=== PATIENT | female | born 1950 | race Caucasian/White ===

== ENCOUNTER → 2016-08-31 | Outpatient (REF) | payer MEDICARE, OTHER ==
[~2016-08-31] MED LIST: /FEXO18TA OR; ASPI81TA83 OR; CALCCHW12 OR; COQ10 OR; DEXILANT DR OR; DILTIAZEM; DILTIAZEM ER OR; EPIP0.3I IM; FISHCAP OR; FLON0.05; LISI10TA4 OR; LORA0.5T OR; METF500T4 OR; MILKPOW OR; MULTIVIT OR; PROAAER INH; RECLAST INJ; RESTASIS OU; SIMV10TA2 OR; SING10TA31 OR; VITA500T OR; VITAMIN D2 PO; pataday OU
== END ==
LOC: M LAB REF 16:47
PROVIDERS: ATTEND Nurse Practitioner Adult Health
DX: R30.0 Dysuria (principal)

== ENCOUNTER → 2016-10-27 | Outpatient (CLI) | payer MEDICARE, OTHER ==
[~2016-10-27] MED LIST changes: +ALBU17IN; +ASPI81TA85 PO; +CART120C; +DEXI60CA; +FEXO180T58 PO; +GASTROGRAFIN SOLUTION 30ML (Q9963) As Ordered ONE; +HYOS125TA; +ISOVUE-370 76% 100ML VIAL (Q9967) As Ordered ONE; +LISI10TA4; +METF500T; +MONT10TA2; +PERC5TAB6 PO; +REST0.05; +SIMV10TA2
--- NOTE | 2016-10-27 14:46 | REP ---
REASON: History of diverticulitis. COMPARISON: 04/20/2016 The examination was performed after the administration of oral contrast only. Lack of intravenous contrast decreases the sensitivity of the exam. The lung bases are unchanged. There are no acute patchy opacities or pleural effusions. The hepatic parenchyma is unchanged. There is no fatty infiltration of the liver. Hepatic and splenic densities are within normal limits. Surgical clips are seen in the gallbladder fossa from previous cholecystectomy. Limited evaluation of the spleen, pancreas, adrenal glands, and kidneys shows no significant changes from the prior exam. 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 There is a simple Bosniak class I right renal cyst, which is also stable. Limited evaluation of the abdominal aorta and para-aortic regions shows no gross abnormalities or significant changes from the prior exam. There is no free fluid or free air in the abdomen. Limited evaluation of the bowel loops and their mesenteries shows them to be within normal limits. Note is made of descending colon diverticulosis. CT PELVIS: There is sigmoid colon diverticulosis. There is no free fluid or free air. There is no pelvic mass or adenopathy. The pelvic bowel loops are otherwise unremarkable and unchanged. Bone window technique throughout the exam shows the osseous structures to be stable and intact and within normal limits for the patient's age. IMPRESSION: No acute intra-abdominal or intrapelvic disease. Findings as described above. Signed by Bear Graves DO 10/27/2016 02:59 P
== END ==
LOC: M RAD 11:50
PROVIDERS: ATTEND Physician Assistant
DX: K57.92 Diverticulitis of intestine, part unspecified, without perforation or abscess without bleeding (principal)
CPT/HCPCS: 74176; Q9963

== ENCOUNTER 2016-10-31 07:27 | Emergency (ER) | payer MEDICARE, OTHER ==
[~2016-10-31] VITALS: Ht 160 cm; Wt 81.2 kg
[~2016-10-31 07:27] MED LIST changes: -ALBU17IN; -ASPI81TA85 PO; -CART120C; -DEXI60CA; -FEXO180T58 PO; -GASTROGRAFIN SOLUTION 30ML (Q9963) As Ordered ONE; -HYOS125TA; -ISOVUE-370 76% 100ML VIAL (Q9967) As Ordered ONE; -LISI10TA4; -METF500T; -MONT10TA2; -PERC5TAB6 PO; -REST0.05; -SIMV10TA2
[2016-10-31] MEDS ORDERED: CART120C (08:00)
[2016-10-31] MEDS ORDERED: MONT10TA2 (08:00)
[2016-10-31] MEDS ORDERED: HYOS125TA (08:00)
[2016-10-31] MEDS ORDERED: SIMV10TA2 (08:00)
[2016-10-31] MEDS ORDERED: REST0.05 (08:00)
[2016-10-31] MEDS ORDERED: LISI10TA4 (08:00)
[2016-10-31] MEDS ORDERED: FEXO180T58 PO (08:00)
[2016-10-31] MEDS ORDERED: ASPI81TA85 PO (08:00)
[2016-10-31] MEDS ORDERED: DEXI60CA (08:00)
[2016-10-31] MEDS ORDERED: ALBU17IN (08:00)
[2016-10-31] MEDS ORDERED: METF500T (08:00)
[2016-10-31] MEDS ORDERED: PERC5TAB6 PO (09:30)
[2016-10-31] MEDS ORDERED: PERCOCET 5MG/325MG TAB PO ONE (09:30)
[2016-10-31 09:41] VITALS: BP 146/83
--- NOTE | 2016-10-31 10:00 | REP ---
RIGHT FOOT: HISTORY: Pain after trauma. COMPARISON: 03/09/2007. The bones are demineralized. There are degenerative changes. There is a plantar calcaneal heel spur. There is no evidence of an acute fracture. IMPRESSION: Chronic changes. Signed by Bear Graves DO 10/31/2016 10:24 A
== END 2016-10-31 09:51 | disposition home or self-care (01) ==
LOC: M ED 09:31
DX: S93.601A Unspecified sprain of right foot, initial encounter (principal); W18.09XA Striking against other object with subsequent fall, initial encounter; Y92.019 Unspecified place in single-family (private) house as the place of occurrence of the external cause; Y93.01 Activity, walking, marching and hiking; Y99.8 Other external cause status; Z79.82 Long term (current) use of aspirin; Z79.899 Other long term (current) drug therapy; Z88.0 Allergy status to penicillin; Z88.1 Allergy status to other antibiotic agents; Z88.2 Allergy status to sulfonamides; Z88.6 Allergy status to analgesic agent; Z88.8 Allergy status to other drugs, medicaments and biological substances; Z91.030 Bee allergy status

== ENCOUNTER → 2016-12-16 | Outpatient (CLI) | payer MEDICARE, OTHER ==
[~2016-12-16] MED LIST changes: +ALBU17IN; +ASPI81TA85 PO; +CART120C; +DEXI60CA; +FEXO180T58 PO; +HYOS125TA; +LISI10TA4; +METF500T; +MONT10TA2; +PERC5TAB6 PO; +REST0.05; +SIMV10TA2
[2016-12-16 07:33] LABS: ALBUMIN 3.6 GM/DL (3.2-5.2); ALBUMIN/GLOBULIN RATIO 1.03 (1.00-1.93); ALKALINE PHOSPHATASE 68 U/L (45-117); ALT/SGPT 29 U/L (12-78); ANION GAP 7 MEQ/L (8-16); AST/SGOT 18 U/L (15-37); BILIRUBIN,TOTAL 0.6 MG/DL (0.2-1.0); BLOOD UREA NITROGEN 12 MG/DL (7-18); CALCIUM LEVEL 8.8 MG/DL (8.8-10.2); CARBON DIOXIDE LEVEL 28 MEQ/L (21-32); CHLORIDE LEVEL 107 MEQ/L (98-107); CHOLESTEROL LEVEL 185 MG/DL (<200); CREATININE FOR GFR 0.86 MG/DL (0.55-1.02); GLOMERULAR FILTRATION RATE > 60.0 (>45); GLUCOSE, FASTING 114 MG/DL (80-110); POTASSIUM SERUM 4.2 MEQ/L (3.5-5.1); SODIUM LEVEL 142 MEQ/L (136-145); TOTAL PROTEIN 7.1 GM/DL (6.4-8.2); TRIGLYCERIDES LEVEL 176 MG/DL (<150)
== END ==
LOC: M LAB 06:30
PROVIDERS: ATTEND Family Medicine
DX: E11.9 Type 2 diabetes mellitus without complications (principal)

== ENCOUNTER → 2017-03-17 | Outpatient (CLI) | payer MEDICARE, OTHER ==
[~2017-03-17] MED LIST changes: -DEXI60CA; +DEXI60CA2; -METF500T; +METF500T13; +PERC5TAB12 PO; -PERC5TAB6 PO
--- NOTE | 2017-03-17 19:16 | REP ---
HISTORY: Lower abdominal pain. COMPARISON: Multiple, the latest 10/27/2016, a contrast enhanced examination which showed extensive diverticulitis at the sigmoid colon. Today's examination was performed in followup. The lung bases are clear, essentially unchanged. Limited evaluation of the solid intra-abdominal organs show no significant changes from the prior exam. Limited evaluation of the pancreas and adrenal glands show no significant changes from the prior exam. There are chronic right renal changes, status quo. 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 There is no evidence of free fluid or free air within the abdomen. There is no significant change in the appearance of the abdominal aorta or periaortic regions. CT pelvis: Findings seen previously consistent with diverticulitis, appear less severe on this noncontrast enhanced exam, however, there is a small amount of free pelvic fluid, which has increased slightly from the prior exam. There is no evidence of intestinal obstruction. There is no evidence of pelvic adenopathy. Bone window technique throughout the examination shows no change in the osseous structures. IMPRESSION: There has been improvement in the appearance of the sigmoid colon diverticulitis, however, since no intravenous contrast has been administered, I cannot accurately assess for the possibility of a small developing abscess and I cannot state whether the patient has resolved diverticular changes from the 10/27/2016 exam and the finding today represents a resurgence of acute diverticulitis. This needs to be correlated with the patient's history. Other findings as described above. Signed by Bear Graves DO 03/17/2017 07:31 P
== END ==
LOC: M RAD 17:54
PROVIDERS: ATTEND Nurse Practitioner Family
DX: K57.80 Diverticulitis of intestine, part unspecified, with perforation and abscess without bleeding (principal)

== ENCOUNTER 2017-07-25 15:37 | Emergency (ER) | payer OTHER, MEDICARE | END 2017-07-25 15:54 | disposition home or self-care (01) | LOC: M ED 15:37 | DX: S83.92XA Sprain of unspecified site of left knee, initial encounter (principal); S80.02XA Contusion of left knee, initial encounter; W01.0XXA Fall on same level from slipping, tripping and stumbling without subsequent striking against object, initial encounter; Y92.89 Other specified places as the place of occurrence of the external cause; I10 Essential (primary) hypertension; E78.00 Pure hypercholesterolemia, unspecified; J45.909 Unspecified asthma, uncomplicated; K57.92 Diverticulitis of intestine, part unspecified, without perforation or abscess without bleeding; E11.9 Type 2 diabetes mellitus without complications; F17.210 Nicotine dependence, cigarettes, uncomplicated; Z88.8 Allergy status to other drugs, medicaments and biological substances; Z88.1 Allergy status to other antibiotic agents; Z88.0 Allergy status to penicillin; Z88.2 Allergy status to sulfonamides; Z79.899 Other long term (current) drug therapy; Z79.84 Long term (current) use of oral hypoglycemic drugs; Z79.82 Long term (current) use of aspirin | CPT/HCPCS: 73564 ==

== ENCOUNTER → 2017-07-28 | Outpatient (CLI) | payer OTHER, MEDICARE | LOC: M RAD 07:37 | DX: S80.02XA Contusion of left knee, initial encounter (principal); M17.32 Unilateral post-traumatic osteoarthritis, left knee; X58.XXXA Exposure to other specified factors, initial encounter; Y92.9 Unspecified place or not applicable; Y93.9 Activity, unspecified | CPT/HCPCS: 73700 ==

== ENCOUNTER → 2017-09-07 | Outpatient (REF) | payer MEDICARE, OTHER ==
[2017-09-07 17:46] LABS: BASO # 0.1 10^3/uL (0.0-0.2); BASO % 1.1 % (0.0-1.0); EOS # 0.3 10^3/uL (0.0-0.50); EOS % 2.8 % (0.0-3.0); HEMATOCRIT 41.6 % (36.0-47.0); HEMOGLOBIN 13.9 g/dl (12.0-16.0); IMMATURE GRANULOCYTE % 0.2 % (0-3.0); LYMPH # 2.8 10^3/uL (1.5-4.5); LYMPH % 30.8 % (24.0-44.0); MEAN CORPUSCULAR HEMOGLOBIN 32.5 pg (27.0-33.0); MEAN CORPUSCULAR HGB CONC 33.4 g/dl (32.0-36.5); MEAN CORPUSCULAR VOLUME 97.2 fl (80.0-96.0); MONO # 0.5 10^3/uL (0.0-0.8); MONO % 5.1 % (0.0-5.0); NEUTROPHILS # 5.5 10^3/uL (1.8-7.7); PLATELET COUNT, AUTOMATED 231 10^3/uL (150-450); RED BLOOD COUNT 4.28 10^6/uL (4.00-5.40); RED CELL DISTRIBUTION WIDTH 12.9 % (11.5-14.5); WHITE BLOOD COUNT 9.2 10^3/uL (4.0-10.0)
[2017-09-07 17:56] LABS: URIC ACID 5.3 MG/DL (2.6-6.0)
[2017-09-07 17:56] LABS: C REACTIVE PROTEIN QUANTITATIV < 0.30 MG/DL (0.00-0.30); RHEUMATOID FACTOR QUANT < 10.0 IU/ML (0-15.0)
[2017-09-07 18:51] LABS: ERYTHROCYTE SEDIMENTATION RATE 6 mm/hr (0-30)
[2017-09-10 00:07] LABS: ANTINUCLEAR ANTIBODIES DIRECT Negative (Negative); Lyme Disease IgG/IgM Antibodie <0.91 ISR (0.00-0.90); Lyme Disease IgM Ab Quantitati <0.80 index (0.00-0.79)
== END ==
LOC: M LABDRAW1 14:20
DX: M17.11 Unilateral primary osteoarthritis, right knee (principal); Z79.899 Other long term (current) drug therapy
CPT/HCPCS: 84550

== ENCOUNTER → 2018-06-17 | Outpatient (REF) | payer MEDICARE, OTHER | LOC: M LAB 14:35 | PROVIDERS: ATTEND Nurse Practitioner Family | DX: R19.7 Diarrhea, unspecified (principal) ==

== ENCOUNTER → 2018-08-07 | Outpatient (REF) | payer MEDICARE, OTHER | LOC: M LAB REF 12:39 | PROVIDERS: ATTEND Nurse Practitioner Family | DX: N39.0 Urinary tract infection, site not specified (principal) ==

== ENCOUNTER → 2018-12-16 | Outpatient (REF) | payer MEDICARE, OTHER ==
[2018-12-16 21:46] LABS: APPEARANCE, URINE HAZY (CLEAR); BACTERIA, URINE AUTO 2+ (NEGATIVE); BILIRUBIN, URINE AUTO NEGATIVE (NEGATIVE); BLOOD, URINE BLOOD NEGATIVE (NEGATIVE); COLOR, URINE YELLOW (YELLOW); GLUCOSE, URINE (UA) AUTO NEGATIVE (NEGATIVE); KETONE, URINE AUTO NEGATIVE (NEGATIVE); LEUKOCYTE ESTERASE, URINE AUTO 3+ (NEGATIVE); MUCUS, URINE SMALL (NEGATIVE); NITRITE, URINE AUTO NEGATIVE (NEGATIVE); PROTEIN, URINE AUTO NEGATIVE (NEGATIVE); RBC, URINE AUTO 1 /HPF (0-3); SPECIFIC GRAVITY URINE AUTO 1.008 (1.002-1.035); SQUAMOUS EPITHELIAL CELL UR AU 0 /HPF (0-6); UROBILINOGEN, URINE AUTO 0.2 mg/dL (0.0-2.0); WBC, URINE AUTO 72 /HPF (0-3)
== END ==
LOC: M LAB REF 14:32
PROVIDERS: ATTEND Physician Assistant Medical
DX: N39.0 Urinary tract infection, site not specified (principal)

== ENCOUNTER 2019-01-13 18:12 | Emergency (ER) | payer MEDICARE, OTHER ==
[~2019-01-13] VITALS: Ht 160 cm; Wt 77.3 kg
[2019-01-13 18:12] VITALS: BP 136/80
--- NOTE | 2019-01-14 10:39 | REP ---
RIGHT WRIST SERIES: Four views right wrist performed. There is an apparent nondisplaced intra-articular fracture of the distal end of the radius medially. I see no other evidence of acute fracture or dislocation. Electronically Signed by Med Dias MD 01/14/2019 11:33 P
--- NOTE | 2019-01-14 10:41 | REP ---
RIGHT FOREARM, TWO VIEWS: Two views of the right forearm are performed. No definite fracture is seen of the visualized osseous structures on these views, but on today's right wrist series, one view showed a suspected nondisplaced fracture of the distal radius medially extending into the radiocarpal joint. The studies are otherwise unremarkable. IMPRESSION: No evidence of acute fracture on these views, but today's right wrist series showed a suspected nondisplaced fracture of the distal radius. Electronically Signed by Med Dias MD 01/14/2019 11:35 P
== END 2019-01-13 19:54 | disposition left against medical advice (07) ==
LOC: M ED 18:12
DX: S69.91XA Unspecified injury of right wrist, hand and finger(s), initial encounter (principal); X58.XXXA Exposure to other specified factors, initial encounter; Y92.9 Unspecified place or not applicable; Y93.9 Activity, unspecified; Y99.9 Unspecified external cause status; Z53.21 Procedure and treatment not carried out due to patient leaving prior to being seen by health care provider

== ENCOUNTER → 2019-01-30 | Outpatient (CLI) | payer MEDICARE, OTHER ==
[~2019-01-30] MED LIST changes: -SIMV10TA2; +SIMV10TA21
--- NOTE | 2019-02-05 10:51 | SLEEPCENT ---
DATE OF STUDY: 01/30/2019 ORDERED BY: Dr. Gutierrez Nocturnal polysomnography was performed for evaluation of sleep physiology in this patient with a history of excessive somnolence, snoring and nonrestorative sleep who has comorbidity of chronic obstructive pulmonary disease (COPD). 9 hours and 7 minutes of data were reviewed. There were 339 minutes of sleep identified. Sleep latency was prolonged at 95.5 minutes. Rapid eye movement (REM) latency was prolonged a 323 minutes. Sleep architecture showed fragmentation. There was 1 REM cycle. Overall sleep efficiency was 62.6%. The electrocardiogram showed a sinus rhythm with an average heart rate of 63 beats per minute. Rate ranged 40-80. Electroencephalogram (EEG) showed significant alpha intrusion into non-REM stages. There were no focal events. Some artifact was noted. Otherwise normal waveforms for awake and sleep with only 1 respiratory event identified of 10 seconds in duration or greater for an apnea-hypopnea index of 2. Some snoring was appreciated. Respiratory related arousals occurred 0.4 times per hour. There was significant limb activity appreciated. Limb movement arousal index of 10.6. Oxygen saturations remained 90% plus throughout the study. IMPRESSION: Periodic limb movement disorder (G4 .61). Limb movement arousal index 10.6. RECOMMENDATION: Interventions to reduce the frequency of arousal from limb activity may improve the quality of the patient's sleep.
== END ==
LOC: M SLEEP 19:42
PROVIDERS: ATTEND Internal Medicine Pulmonary Disease
DX: R06.83 Snoring (principal); G47.61 Periodic limb movement disorder

== ENCOUNTER → 2019-04-04 | Outpatient (REF) | payer MEDICARE, OTHER ==
[~2019-04-04] MED LIST changes: +SIMV10TA2; -SIMV10TA21
== END ==
LOC: M LAB REF 15:36
DX: R19.7 Diarrhea, unspecified (principal)

== ENCOUNTER → 2019-09-02 | Outpatient (REF) | payer MEDICARE, OTHER ==
[~2019-09-02] MED LIST changes: -MONT10TA2; +MONT10TA4; -SIMV10TA2; +SIMV10TA21
== END ==
LOC: M LAB REF 17:52
PROVIDERS: ATTEND Physician Assistant
DX: R30.0 Dysuria (principal)

== ENCOUNTER → 2019-09-30 | Outpatient (REF) | payer MEDICARE, OTHER ==
[2019-09-30 13:16] LABS: APPEARANCE, URINE HAZY (CLEAR); BACTERIA, URINE AUTO 1+ (NEGATIVE); BILIRUBIN, URINE AUTO NEGATIVE (NEGATIVE); BLOOD, URINE BLOOD NEGATIVE (NEGATIVE); COLOR, URINE YELLOW (YELLOW); GLUCOSE, URINE (UA) AUTO NEGATIVE (NEGATIVE); KETONE, URINE AUTO NEGATIVE (NEGATIVE); LEUKOCYTE ESTERASE, URINE AUTO 2+ (NEGATIVE); MUCUS, URINE SMALL (NEGATIVE); NITRITE, URINE AUTO NEGATIVE (NEGATIVE); PROTEIN, URINE AUTO NEGATIVE (NEGATIVE); RBC, URINE AUTO 3 /HPF (0-3); SPECIFIC GRAVITY URINE AUTO 1.013 (1.002-1.035); SQUAMOUS EPITHELIAL CELL UR AU 0 /HPF (0-6); UROBILINOGEN, URINE AUTO 0.2 mg/dL (0.0-2.0); WBC, URINE AUTO 143 /HPF (0-3)
== END ==
LOC: M LAB REF 12:44
PROVIDERS: ATTEND Physician Assistant Medical
DX: N39.0 Urinary tract infection, site not specified (principal)

== ENCOUNTER → 2019-10-19 | Outpatient (REF) | payer MEDICARE, OTHER | LOC: M LAB REF 16:08 | PROVIDERS: ATTEND Nurse Practitioner Family | DX: I88.9 Nonspecific lymphadenitis, unspecified (principal) ==

== ENCOUNTER 2019-11-30 11:23 | Emergency (ER) | payer MEDICARE, OTHER ==
[~2019-11-30] VITALS: Ht 160 cm; Wt 77.3 kg
[~2019-11-30 11:23] MED LIST changes: -CART120C; +CART120C PO; -DEXI60CA2; +DEXI60CA2 PO; -LISI10TA4; +LISI10TA4 PO; -METF500T13; +METF500T13 PO; -MONT10TA4; +MONT10TA4 PO; -REST0.05; +REST0.05 OU; -SIMV10TA21; +SIMV10TA21 PO
[2019-11-30] MEDS ORDERED: PURE500C5 PO (11:53)
[2019-11-30] MEDS ORDERED: FISH1000 PO (11:53)
[2019-11-30] MEDS ORDERED: DULO1CAP6 PO (11:53)
[2019-11-30] MEDS ORDERED: VITA1CAP25 PO (11:53)
[2019-11-30] MEDS ORDERED: INCR1INH INH (11:53)
[2019-11-30] MEDS ORDERED: MILK175C6 PO (11:53)
[2019-11-30] MEDS ORDERED: MULTCAP PO (11:53)
[2019-11-30 11:56] LABS: BASO # 0.1 10^3/uL (0.0-0.2); BASO % 0.8 % (0.0-1.0); EOS # 0.5 10^3/uL (0.0-0.5); EOS % 7.2 % (0.0-3.0); HEMOGLOBIN 14.2 g/dl (12.0-15.5); LYMPH # 2.3 10^3/uL (1.5-5.0); LYMPH % 31.1 % (24.0-44.0); MEAN CORPUSCULAR HEMOGLOBIN 33.3 pg (27.0-33.0); MEAN CORPUSCULAR HGB CONC 33.8 g/dl (32.0-36.5); MEAN CORPUSCULAR VOLUME 98.4 fl (80.0-96.0); MONO # 0.5 10^3/uL (0.0-0.8); MONO % 7.2 % (0.0-5.0); NEUTROPHILS # 3.9 10^3/uL (1.5-8.5); NEUTROPHILS % 53.4 % (36.0-66.0); PLATELET COUNT, AUTOMATED 224 10^3/uL (150-450); RED BLOOD COUNT 4.27 10^6/uL (4.00-5.40); WHITE BLOOD COUNT 7.2 10^3/uL (4.0-10.0)
[2019-11-30 12:26] LABS: ALBUMIN 3.7 GM/DL (3.2-5.2); ALT/SGPT 39 U/L (12-78); BILIRUBIN,DIRECT 0.2 MG/DL (0.0-0.2); BILIRUBIN,TOTAL 0.5 MG/DL (0.2-1.0); BLOOD UREA NITROGEN 10 MG/DL (7-18); CALCIUM LEVEL 8.5 MG/DL (8.8-10.2); CARBON DIOXIDE LEVEL 29 MEQ/L (21-32); CHLORIDE LEVEL 104 MEQ/L (98-107); CREATININE FOR GFR 0.72 MG/DL (0.55-1.30); GLOMERULAR FILTRATION RATE > 60.0 (>39); GLUCOSE, FASTING 94 MG/DL (70-100); LIPASE 55 U/L (73-393); POTASSIUM SERUM 4.3 MEQ/L (3.5-5.1); SODIUM LEVEL 139 MEQ/L (136-145); TOTAL PROTEIN 6.9 GM/DL (6.4-8.2)
--- NOTE | 2019-11-30 14:36 | REP ---
CHEST, SINGLE VIEW: Single view of the chest is performed. Comparison made with prior CT, 07/14/2018 as well as other prior exams. There is a focal band of density at the left cardiophrenic angle, probably representing focal fibroatelectasis, as seen on the prior CT. There is no acute infiltrate. Heart is normal in size. There is calcification of the thoracic aorta. Mediastinal silhouette is unremarkable. Electronically Signed by Med Dias MD 12/03/2019 09:56 P
[2019-11-30 14:41] VITALS: BP 121/59
--- NOTE | 2019-11-30 21:07 | ECGEPIP ---
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
--- NOTE | 2019-11-30 21:12 | ECGEPIP ---
[facility] - ED Test Date: 2019-11-30 Pat Name: LYNN FELIPE Department: Room: - Gender: Female [employer]: jfburak : 1950 Requested By: Baldemar Garcia Order Number: [id number] Reading MD: Rose De La Vega Measurements Intervals [place] Rate: 66 P: 60 [place]: 177 QRS: 4 QRSD: 84 T: 41 QT: 396 QTc: 415 Interpretive Statements SINUS RHYTHM DECREASED RATE 11/30/19 Electronically Signed on 11-30-2019 21:12:33 EDT by Rose De La Vega
== END 2019-11-30 14:55 | disposition home or self-care (01) ==
LOC: M ED 11:23
DX: R07.9 Chest pain, unspecified (principal); K21.9 Gastro-esophageal reflux disease without esophagitis; I10 Essential (primary) hypertension; E78.5 Hyperlipidemia, unspecified; F17.200 Nicotine dependence, unspecified, uncomplicated; I70.0 Atherosclerosis of aorta; J44.9 Chronic obstructive pulmonary disease, unspecified; K44.9 Diaphragmatic hernia without obstruction or gangrene; Z79.82 Long term (current) use of aspirin; Z79.84 Long term (current) use of oral hypoglycemic drugs; Z79.899 Other long term (current) drug therapy; Z88.0 Allergy status to penicillin; Z88.2 Allergy status to sulfonamides; Z88.8 Allergy status to other drugs, medicaments and biological substances; Z91.030 Bee allergy status

== ENCOUNTER → 2020-02-23 | Outpatient (REF) | payer MEDICARE, OTHER ==
[~2020-02-23] MED LIST changes: -ASPI81TA85 PO; +ASPI81TA86 PO; +DULO1CAP6 PO; +FISH1000 PO; +INCR1INH INH; +MILK175C6 PO; +MULTCAP PO; +PURE500C5 PO; +VITA1CAP25 PO
[2020-02-23 20:11] LABS: APPEARANCE, URINE HAZY (CLEAR); BACTERIA, URINE AUTO 1+ (NEGATIVE); BILIRUBIN, URINE AUTO NEGATIVE (NEGATIVE); BLOOD, URINE BLOOD NEGATIVE (NEGATIVE); COLOR, URINE AMBER (YELLOW); GLUCOSE, URINE (UA) AUTO NEGATIVE (NEGATIVE); KETONE, URINE AUTO NEGATIVE (NEGATIVE); LEUKOCYTE ESTERASE, URINE AUTO 2+ (NEGATIVE); NITRITE, URINE AUTO POSITIVE (NEGATIVE); PROTEIN, URINE AUTO NEGATIVE (NEGATIVE); RBC, URINE AUTO 0 /HPF (0-3); SPECIFIC GRAVITY URINE AUTO 1.008 (1.002-1.035); SQUAMOUS EPITHELIAL CELL UR AU 0 /HPF (0-6); WBC, URINE AUTO 29 /HPF (0-3)
== END ==
LOC: M LAB REF 19:37
PROVIDERS: ATTEND Physician Assistant Medical
DX: R30.0 Dysuria (principal)

== ENCOUNTER → 2020-04-24 | Outpatient (REF) | payer MEDICARE, OTHER ==
[2020-04-24 12:17] LABS: APPEARANCE, URINE CLEAR (CLEAR); BACTERIA, URINE AUTO 1+ (NEGATIVE); BILIRUBIN, URINE AUTO NEGATIVE (NEGATIVE); BLOOD, URINE BLOOD NEGATIVE (NEGATIVE); COLOR, URINE STRAW (YELLOW); GLUCOSE, URINE (UA) AUTO NEGATIVE (NEGATIVE); KETONE, URINE AUTO NEGATIVE (NEGATIVE); LEUKOCYTE ESTERASE, URINE AUTO 3+ (NEGATIVE); MUCUS, URINE SMALL (NEGATIVE); NITRITE, URINE AUTO NEGATIVE (NEGATIVE); PROTEIN, URINE AUTO NEGATIVE (NEGATIVE); RBC, URINE AUTO 1 /HPF (0-3); SPECIFIC GRAVITY URINE AUTO 1.002 (1.002-1.035); SQUAMOUS EPITHELIAL CELL UR AU 0 /HPF (0-6); UROBILINOGEN, URINE AUTO 0.2 mg/dL (0.0-2.0); WBC, URINE AUTO 104 /HPF (0-3)
== END ==
LOC: M LAB REF 11:25
PROVIDERS: ATTEND Physician Assistant
DX: N39.0 Urinary tract infection, site not specified (principal)

== ENCOUNTER 2020-05-26 18:23 | Emergency (ER) | payer MEDICARE, OTHER ==
[~2020-05-26] VITALS: Ht 160 cm; Wt 74.8 kg
[~2020-05-26 18:23] MED LIST changes: -MONT10TA4 PO; +MONT5TAB2 PO
[2020-05-26 18:24] VITALS: BP 148/66
[2020-05-26] MEDS ORDERED: NS 1,000 ML IV ONE (20:15)
[2020-05-26 20:33] LABS: BASO # 0.1 10^3/uL (0.0-0.2); EOS # 0.4 10^3/uL (0.0-0.5); EOS % 5.8 % (0.0-3.0); HEMATOCRIT 41.9 % (36.0-47.0); HEMOGLOBIN 13.9 g/dl (12.0-15.5); LYMPH # 2.3 10^3/uL (1.5-5.0); LYMPH % 31.5 % (24.0-44.0); MEAN CORPUSCULAR HEMOGLOBIN 32.6 pg (27.0-33.0); MEAN CORPUSCULAR HGB CONC 33.2 g/dl (32.0-36.5); MEAN CORPUSCULAR VOLUME 98.4 fl (80.0-96.0); MONO # 0.6 10^3/uL (0.0-0.8); MONO % 8.1 % (0.0-5.0); NEUTROPHILS # 3.9 10^3/uL (1.5-8.5); NEUTROPHILS % 53.2 % (36.0-66.0); PLATELET COUNT, AUTOMATED 237 10^3/uL (150-450); RED BLOOD COUNT 4.26 10^6/uL (4.00-5.40); WHITE BLOOD COUNT 7.3 10^3/uL (4.0-10.0)
[2020-05-26 21:13] LABS: ALBUMIN 3.6 GM/DL (3.2-5.2); ALT/SGPT 32 U/L (12-78); BILIRUBIN,DIRECT 0.1 MG/DL (0.0-0.2); BILIRUBIN,TOTAL 0.5 MG/DL (0.2-1.0); BLOOD UREA NITROGEN 11 MG/DL (7-18); CALCIUM LEVEL 8.6 MG/DL (8.8-10.2); CARBON DIOXIDE LEVEL 26 MEQ/L (21-32); CHLORIDE LEVEL 105 MEQ/L (98-107); CREATININE FOR GFR 0.87 MG/DL (0.55-1.30); GLOMERULAR FILTRATION RATE > 60.0 (>39); GLUCOSE, FASTING 92 MG/DL (70-100); LIPASE 52 U/L (73-393); POTASSIUM SERUM 4.1 MEQ/L (3.5-5.1); SODIUM LEVEL 138 MEQ/L (136-145); TOTAL PROTEIN 6.7 GM/DL (6.4-8.2)
[2020-05-26] MEDS ORDERED: ISOVUE-370 76% 100ML VIAL As Ordered ONE (21:21)
--- NOTE | 2020-05-26 22:49 | REPVR ---
PROCEDURE INFORMATION: Exam: CT Abdomen And Pelvis With Contrast Exam date and time: 05/26/2020 9:59 PM Age: 70 years old Clinical indication: Abdominal pain; Localized; Right lower quadrant (rlq) pain TECHNIQUE: Imaging protocol: Computed tomography of the abdomen and pelvis with intravenous contrast. Radiation optimization: All CT scans at this facility use at least one of these dose optimization techniques: automated exposure control; mA and/or kV adjustment per patient size (includes targeted exams where dose is matched to clinical indication); or iterative reconstruction. Contrast material: ISOVUE 370; Contrast volume: 100 ml; Contrast route: INTRAVENOUS (IV); COMPARISON: 1. CT ABD PELVIS W/O CONTRAST 03/17/2017 6:[address] ABD PELVIS WITH CONTRAST 04/20/2016 8:39:27 AM FINDINGS: Lungs: There is scarring in the inferior lingula that is unchanged compared to the prior CT abdomen and pelvis on 03/17/2017. The lungs were not fully imaged. Heart: No cardiomegaly or pericardial effusion. Liver: The attenuation of the liver is more than 40 Hounsfield units lower in attenuation compared to the spleen, which is compatible with fatty liver infiltration. No liver lesion. The contour of the liver is smooth. The liver is enlarged and in craniocaudal dimension and at the level of the right midclavicular line, the liver measures 17.3 cm. Gallbladder and bile ducts: There has been a cholecystectomy. There is no fluid collection in the gallbladder fossa. No dilation of the bile ducts is noted. No calcified stones are seen in the common bile duct. Pancreas: Normal. No dilation of the main pancreatic duct is noted. There is no inflammatory fat stranding around the pancreas to suggest acute pancreatitis. Spleen: Normal. No splenomegaly is noted. Incidental note is made of a small accessory spleen. Adrenal glands: Normal. No adrenal mass is noted. Kidneys and ureters: There is right periureteral stranding around the right proximal ureter. Mild right hydronephrosis is present. There is incomplete rotation of the right kidney such that the hilum faces anteriorly. There is a 9 mm simple benign appearing cyst in the interpolar region of the right kidney, which is stable compared to the prior CTs on 03/17/2017 and 04/20/2016 and for which further imaging follow-up is not recommended. The left kidney is unremarkable. No renal mass is noted. No stones are noted in the kidneys or ureters. There are no wedge-shaped areas of low attenuation in the kidneys to suggest pyelonephritis. There is no renal abscess or perinephric fluid collection. Stomach and bowel: There is thickening of the wall of the stomach, which may be secondary to its decompressed state versus gastritis. The small bowel is unremarkable. There is colonic diverticulosis without evidence for diverticulitis. There is no evidence for a bowel obstruction, colitis, pneumatosis intestinalis, intussusception, volvulus, or perforated viscus. Appendix: The appendix is not identified in the current examination or in the prior CT abdomen and pelvis examinations on 03/17/2017 and 04/20/2016 and may have been removed. No dilated blind ending tubular structure, inflammatory fat stranding, or fluid is noted in the expected location of the appendix. Intraperitoneal space: Unremarkable. No fluid collection. No free air. Retroperitoneal space: No retroperitoneal fluid collection. Vasculature: The infrarenal abdominal aorta is ectatic and measures up to 2.5 cm in diameter. Extensive atherosclerotic plaque is present. No occlusion of the celiac artery, superior mesenteric artery, inferior mesenteric artery, renal arteries, or iliac arteries is noted. Lymph nodes: Normal. No enlarged lymph nodes. Urinary bladder: The distended urinary bladder is normal in appearance. No stones or masses are seen in the bladder. Reproductive: There has been a hysterectomy. Bones/joints: There is no fracture or dislocation. No suspicious osteolytic or osteoblastic lesion. There is a mild levoscoliosis at the thoracolumbar junction air a mild dextroscoliosis of the lower lumbar spine. Degenerative changes are present in the lumbar spine. There is mild osteoarthritis of both hip joints. There are degenerative changes the pubic symphysis and both sacroiliac joints. Soft tissues: There is a tiny fat containing umbilical hernia. IMPRESSION: 1. Mild right hydronephrosis and periureteral stranding around the right proximal ureter, which may indicate recent excretion of a right ureteral calculus from the genitourinary system, an ascending urinary tract infection, or right vesicoureteral reflux. 2. Thickening of the wall of the stomach, which may be secondary to its decompressed state versus gastritis. 3. Colonic diverticulosis without evidence for diverticulitis. 4. Enlarged, fatty liver. Electronically signed by: Juan Miguel Henao On 05/26/2020 22:49:58 PM
[2020-05-26] MEDS ORDERED: AUGM875T28 PO (23:43)
[2020-05-26] MEDS ORDERED: AUGMENTIN 875 MG TAB PO ONE (23:45)
== END 2020-05-27 00:06 | disposition home or self-care (01) ==
LOC: M ED 18:23
DX: N10 Acute pyelonephritis (principal); R51.9 Headache, unspecified; N13.30 Unspecified hydronephrosis; K57.30 Diverticulosis of large intestine without perforation or abscess without bleeding; K76.0 Fatty (change of) liver, not elsewhere classified; E11.9 Type 2 diabetes mellitus without complications; I10 Essential (primary) hypertension; E78.5 Hyperlipidemia, unspecified; J45.909 Unspecified asthma, uncomplicated; F17.200 Nicotine dependence, unspecified, uncomplicated; Z88.2 Allergy status to sulfonamides; Z88.6 Allergy status to analgesic agent; Z88.8 Allergy status to other drugs, medicaments and biological substances; Z91.030 Bee allergy status; Z79.899 Other long term (current) drug therapy
CPT/HCPCS: 36415; 74177; 80048; 80076; 81001; 83605; 83690; 85025; 87086; 96360; 96361; 99283; Q9967

== ENCOUNTER 2020-08-05 09:56 | Emergency (ER) | payer OTHER, MEDICARE ==
[~2020-08-05] VITALS: Ht 161.3 cm; Wt 78.3 kg
[~2020-08-05 09:56] MED LIST changes: +AUGM875T28 PO; +LISI10TA22 PO; -LISI10TA4 PO; +MONT10TA10 PO; -MONT5TAB2 PO
[2020-08-05] MEDS ORDERED: ALBU8.5H (10:07)
--- NOTE | 2020-08-05 10:40 | REP ---
INDICATION: pain after fall. COMPARISON: Comparison study 25 July 2017. TECHNIQUE: Five views of the left knee are provided. FINDINGS: Five views of the left knee demonstrate diffuse osteopenia. There is advanced 3 compartment osteoarthritis with medial and patellofemoral compartments. Spurring and joint space narrowing. There is some osteophyte formation laterally as well. There is soft tissue fullness in the suprapatellar bursa indicative of a joint effusion. On the lateral radiograph there is fragmented spurring at the posterior tibial plateau. The findings are essentially unchanged radiographically from prior study of 25 July 2017.. No fracture or subluxation is seen. No opaque foreign body noted. IMPRESSION: Three compartment osteoarthritis. Diffuse osteopenia. Probable joint effusion. No fracture or other acute bony abnormality.. <Electronically signed by Hernandez Vargas > 08/05/20 [id number]
[2020-08-05 11:00] VITALS: BP 142/74
[2020-08-05] MEDS ORDERED: ACETAMINOPHEN 325 MG TAB PO ONE (11:00)
== END 2020-08-05 11:04 | disposition home or self-care (01) ==
LOC: M ED 09:56
DX: M25.462 Effusion, left knee (principal); S80.02XA Contusion of left knee, initial encounter; W01.0XXA Fall on same level from slipping, tripping and stumbling without subsequent striking against object, initial encounter; Y92.89 Other specified places as the place of occurrence of the external cause; Y99.0 Civilian activity done for income or pay; I10 Essential (primary) hypertension; E11.9 Type 2 diabetes mellitus without complications; J44.9 Chronic obstructive pulmonary disease, unspecified; J45.909 Unspecified asthma, uncomplicated; E78.5 Hyperlipidemia, unspecified; M19.90 Unspecified osteoarthritis, unspecified site; Z79.899 Other long term (current) drug therapy; Z79.82 Long term (current) use of aspirin; Z79.84 Long term (current) use of oral hypoglycemic drugs; F17.210 Nicotine dependence, cigarettes, uncomplicated

== ENCOUNTER 2020-10-05 08:59 | Emergency (ER) | payer MEDICARE, OTHER ==
[~2020-10-05] VITALS: Ht 160 cm; Wt 75.6 kg
[~2020-10-05 08:59] MED LIST changes: +ALBU8.5H
[2020-10-05 09:29] LABS: BASO # 0.1 10^3/uL (0.0-0.2); BASO % 1.1 % (0.0-1.0); EOS # 0.3 10^3/uL (0.0-0.5); EOS % 2.9 % (0.0-3.0); HEMATOCRIT 46.5 % (36.0-47.0); HEMOGLOBIN 15.6 g/dl (12.0-15.5); LYMPH # 2.3 10^3/uL (1.5-5.0); LYMPH % 25.4 % (24.0-44.0); MEAN CORPUSCULAR HEMOGLOBIN 33.1 pg (27.0-33.0); MEAN CORPUSCULAR HGB CONC 33.5 g/dl (32.0-36.5); MEAN CORPUSCULAR VOLUME 98.5 fl (80.0-96.0); MONO # 0.5 10^3/uL (0.0-0.8); MONO % 5.5 % (2.0-8.0); NEUTROPHILS # 5.9 10^3/uL (1.5-8.5); NEUTROPHILS % 64.7 % (36.0-66.0); PLATELET COUNT, AUTOMATED 232 10^3/uL (150-450); RED BLOOD COUNT 4.72 10^6/uL (4.00-5.40); WHITE BLOOD COUNT 9.2 10^3/uL (4.0-10.0)
[2020-10-05 09:38] LABS: INR 0.94; PROTHROMBIN TIME 12.7 SECONDS (12.5-14.3)
[2020-10-05 09:39] LABS: PARTIAL THROMBOPLASTIN TIME 29.5 SECONDS (24.2-38.5)
[2020-10-05] MEDS ORDERED: NORCO, ANEXSIA 5/325MG TABLET (HYDROcodone/ACETAMINOPHEN) PO ONE (09:45)
[2020-10-05 10:22] LABS: ALBUMIN 3.6 GM/DL (3.2-5.2); BILIRUBIN,DIRECT 0.1 MG/DL (0.0-0.2); BILIRUBIN,TOTAL 0.5 MG/DL (0.2-1.0); TOTAL PROTEIN 7.1 GM/DL (6.4-8.2)
--- NOTE | 2020-10-05 10:49 | REP ---
INDICATION: FP right COMPARISON: 05/26/2020. TECHNIQUE: CT Scan of the abdomen and pelvis was performed without intravenous contrast. Sagittal and coronal reconstruction images performed. FINDINGS: Lung bases: There is calcified granuloma in the right lower lobe. Mild fibro atelectatic change in the lingula. Liver: Grossly unremarkable. Gallbladder: Prior cholecystectomy. Spleen: Grossly unremarkable.. Adrenals: Normal. Pancreas: Grossly unremarkable.. Kidneys: No hydronephrosis or nephrolithiasis. Ureters demonstrate no dilatation or calculus. The right kidney is again noted to be somewhat malrotated. Small and large bowel: There is colonic diverticulosis without evidence of acute diverticulitis. Free fluid: None. Abdominal aorta: No aneurysm. Adenopathy: None. Appendix: No inflamed appendix seen. Osseous structures: There are degenerative changes of the spine without compression deformity. Pelvis: No mass. No bladder calculus seen. Prior hysterectomy. IMPRESSION: No acute abnormalities. No renal or ureteral calculus and no hydroureteronephrosis. Colonic diverticulosis without acute diverticulitis. No free air, free fluid or evidence of bowel obstruction. <Electronically signed by Med Dias > 10/05/20 [id number]
[2020-10-05 11:01] VITALS: BP 187/79
== END 2020-10-05 11:05 | disposition home or self-care (01) ==
LOC: M ED 08:59
DX: R10.9 Unspecified abdominal pain (principal); K57.32 Diverticulitis of large intestine without perforation or abscess without bleeding; Z85.51 Personal history of malignant neoplasm of bladder; F17.200 Nicotine dependence, unspecified, uncomplicated; Z88.2 Allergy status to sulfonamides; Z88.6 Allergy status to analgesic agent; Z88.1 Allergy status to other antibiotic agents; Z88.8 Allergy status to other drugs, medicaments and biological substances; Z79.899 Other long term (current) drug therapy

== ENCOUNTER → 2021-01-05 | Outpatient (CLI) | payer MEDICARE, OTHER ==
[~2021-01-05] MED LIST changes: -MONT10TA10 PO; +MONT10TA97 PO
== END ==
LOC: M RAD 08:50
PROVIDERS: ATTEND Internal Medicine Pulmonary Disease
DX: F17.210 Nicotine dependence, cigarettes, uncomplicated (principal)

== ENCOUNTER 2021-01-28 18:28 | Emergency (ER) | payer MEDICARE, OTHER ==
[~2021-01-28] VITALS: Ht 157.5 cm; Wt 31.4 kg
[~2021-01-28 18:28] MED LIST changes: +MONT10TA10 PO; -MONT10TA97 PO
[2021-01-28 18:29] VITALS: BP 138/67
== END 2021-01-28 22:45 | disposition left against medical advice (07) ==
LOC: M ED 18:28
DX: Z53.21 Procedure and treatment not carried out due to patient leaving prior to being seen by health care provider (principal)

== ENCOUNTER → 2021-04-24 | Outpatient (REF) | payer MEDICARE, OTHER | LOC: M LAB REF 16:51 | PROVIDERS: ATTEND Nurse Practitioner Adult Health | DX: R30.0 Dysuria (principal) ==

== ENCOUNTER → 2022-02-09 | Outpatient (CLI) | payer MEDICARE ==
[~2022-02-09] MED LIST changes: +FEXO-117 PO; -FEXO180T58 PO; -MONT10TA10 PO; +MONT10TA97 PO
== END ==
LOC: M RAD 08:40
PROVIDERS: ATTEND Internal Medicine Pulmonary Disease
DX: F17.218 Nicotine dependence, cigarettes, with other nicotine-induced disorders (principal)

== ENCOUNTER → 2022-03-15 | Outpatient (CLI) | payer MEDICARE ==
[~2022-03-15] MED LIST changes: -ALBU8.5H; +ALBU8.5H INH; +ASPI81TA26 PO
== END ==
LOC: M LABSMTC 10:51
PROVIDERS: ATTEND Anesthesiology
DX: Z01.812 Encounter for preprocedural laboratory examination (principal); Z20.822 Contact with and (suspected) exposure to COVID-19

== ENCOUNTER 2022-03-18 12:18 | Day surgery (SDC) | payer MEDICARE ==
[~2022-03-18] VITALS: Ht 162.6 cm; Wt 74.6 kg
[~2022-03-18 12:18] MED LIST changes: +NS 1,000 ML IV ONE
[2022-03-18] MEDS ORDERED: LIDOCAINE 2% 100MG/5ML SDV (FOR ANES.) As Ordered ONE (14:02)
[2022-03-18] MEDS ORDERED: propofoL 200 MG/20 ML VIAL As Ordered ONE ×2 (14:02→14:20)
[2022-03-18 14:45] VITALS: BP 119/71
== END 2022-03-18 14:56 | disposition home or self-care (01) ==
LOC: M OPP 12:18
PROVIDERS: ATTEND Surgery
DX: Z12.11 Encounter for screening for malignant neoplasm of colon (principal); Z86.010 Personal history of colon polyps; D12.8 Benign neoplasm of rectum; D12.7 Benign neoplasm of rectosigmoid junction; D12.5 Benign neoplasm of sigmoid colon; D12.3 Benign neoplasm of transverse colon; D12.2 Benign neoplasm of ascending colon; K57.30 Diverticulosis of large intestine without perforation or abscess without bleeding; K44.9 Diaphragmatic hernia without obstruction or gangrene; K29.70 Gastritis, unspecified, without bleeding; K29.80 Duodenitis without bleeding; F17.200 Nicotine dependence, unspecified, uncomplicated; Z79.02 Long term (current) use of antithrombotics/antiplatelets; Z79.51 Long term (current) use of inhaled steroids; Z79.84 Long term (current) use of oral hypoglycemic drugs; Z79.82 Long term (current) use of aspirin; Z79.899 Other long term (current) drug therapy; Z88.1 Allergy status to other antibiotic agents; Z88.2 Allergy status to sulfonamides; Z88.6 Allergy status to analgesic agent; Z88.8 Allergy status to other drugs, medicaments and biological substances; Z86.51 Personal history of combat and operational stress reaction; Z92.21 Personal history of antineoplastic chemotherapy; I10 Essential (primary) hypertension; J44.9 Chronic obstructive pulmonary disease, unspecified

== ENCOUNTER → 2023-03-07 | Outpatient (CLI) | payer MEDICARE ==
[~2023-03-07] MED LIST changes: +ASCO500C3 PO; -NS 1,000 ML IV ONE; -PURE500C5 PO
== END ==
LOC: M RAD 16:23
PROVIDERS: ATTEND Internal Medicine Pulmonary Disease
DX: Z12.2 Encounter for screening for malignant neoplasm of respiratory organs (principal); F17.218 Nicotine dependence, cigarettes, with other nicotine-induced disorders; R91.8 Other nonspecific abnormal finding of lung field

== ENCOUNTER 2023-10-01 17:33 | Emergency (ER) | payer MEDICARE ==
[~2023-10-01] VITALS: Ht 162.6 cm; Wt 72.2 kg
[2023-10-01] MEDS: LIDOCAINE 5% (LIDODERM) PATCH TD ONE (19:40)
[2023-10-01] MEDS: KETOROLAC 60MG 2ML VIAL IM ONE (19:40)
[2023-10-01] MEDS ORDERED: LIDO5DIS41 TD (20:23)
[2023-10-01] MEDS ORDERED: CYCL-707 PO (20:23)
[2023-10-01] MEDS ORDERED: NAPR-837 PO (20:23)
[2023-10-01 20:39] VITALS: BP 143/83; TEMP 97.6; O2SAT 96
== END 2023-10-01 20:41 | disposition home or self-care (01) ==
LOC: M ED 17:33
DX: M54.50 Low back pain, unspecified (principal); E11.9 Type 2 diabetes mellitus without complications; I10 Essential (primary) hypertension; E78.5 Hyperlipidemia, unspecified; F41.9 Anxiety disorder, unspecified; F32.A Depression, unspecified; J44.9 Chronic obstructive pulmonary disease, unspecified; R51.9 Headache, unspecified; K57.92 Diverticulitis of intestine, part unspecified, without perforation or abscess without bleeding; F17.200 Nicotine dependence, unspecified, uncomplicated; Z88.2 Allergy status to sulfonamides; Z88.1 Allergy status to other antibiotic agents; Z88.6 Allergy status to analgesic agent; Z88.8 Allergy status to other drugs, medicaments and biological substances; Z91.030 Bee allergy status; Z79.52 Long term (current) use of systemic steroids; Z79.82 Long term (current) use of aspirin; Z79.811 Long term (current) use of aromatase inhibitors; Z79.4 Long term (current) use of insulin; Z79.899 Other long term (current) drug therapy
CPT/HCPCS: 96372; 99283; J1885

== ENCOUNTER 2023-12-01 17:50 | Emergency (ER) | payer MEDICARE ==
[~2023-12-01] VITALS: Ht 162.6 cm; Wt 73.4 kg
[~2023-12-01 17:50] MED LIST changes: +CYCL-707 PO; +LIDO5DIS41 TD; +NAPR-837 PO
[2023-12-01 17:51] VITALS: TEMP 98.5
[2023-12-01 20:20] VITALS: BP 190/76; O2SAT 96
[2023-12-01] MEDS: ACETAMINOPHEN 500 MG TAB PO ONE (20:38)
== END 2023-12-01 21:35 | disposition left against medical advice (07) ==
LOC: M ED 17:50
DX: Z53.21 Procedure and treatment not carried out due to patient leaving prior to being seen by health care provider (principal)

== ENCOUNTER → 2024-04-27 | Outpatient (CLI) | payer MEDICARE | LOC: M RAD 09:43 | PROVIDERS: ATTEND Internal Medicine Pulmonary Disease | DX: Z12.2 Encounter for screening for malignant neoplasm of respiratory organs (principal); F17.218 Nicotine dependence, cigarettes, with other nicotine-induced disorders ==

== ENCOUNTER → 2024-05-11 | Outpatient (REF) | payer MEDICARE | LOC: M LAB REF 16:39 | PROVIDERS: ATTEND Family Medicine | DX: Z02.1 Encounter for pre-employment examination (principal) ==

== ENCOUNTER 2024-07-13 16:37 | Emergency (ER) | payer MEDICARE ==
[~2024-07-13] VITALS: Ht 162.6 cm; Wt 71.6 kg
[~2024-07-13 16:37] MED LIST changes: -FEXO-117 PO; +FEXO-193 PO
[2024-07-13 18:19] LABS: BASO # 0.1 10^3/uL (0.0-0.2); BASO % 0.7 % (0.0-1.0); EOS # 0.1 10^3/uL (0.0-0.5); EOS % 0.6 % (0.0-3.0); HEMATOCRIT 46.5 % (36.0-47.0); HEMOGLOBIN 15.8 g/dl (12.0-15.5); LYMPH # 1.9 10^3/uL (1.5-5.0); LYMPH % 16.2 % (24.0-44.0); MEAN CORPUSCULAR HEMOGLOBIN 32.1 pg (27.0-33.0); MEAN CORPUSCULAR VOLUME 94.5 fl (80.0-96.0); MONO # 0.5 10^3/uL (0.0-0.8); MONO % 3.9 % (2.0-8.0); NEUTROPHILS # 9.1 10^3/uL (1.5-8.5); NEUTROPHILS % 78.3 % (36.0-66.0); PLATELET COUNT, AUTOMATED 209 10^3/uL (150-450); RED BLOOD COUNT 4.92 10^6/uL (4.00-5.40); WHITE BLOOD COUNT 11.6 10^3/uL (4.0-10.0)
[2024-07-13 18:43] LABS: LIPASE 21 U/L (12-53)
[2024-07-13 18:45] LABS: ALBUMIN 3.8 G/DL (3.2-5.2); ALKALINE PHOSPHATASE 77 U/L (35-104); ALT/SGPT 16 U/L (7.0-40); AST/SGOT 14 U/L (<34); BILIRUBIN,DIRECT 0.1 MG/DL (<0.4); BILIRUBIN,TOTAL 0.4 MG/DL (0.3-1.2); BLOOD UREA NITROGEN 19 MG/DL (9-23); CALCIUM LEVEL 8.7 MG/DL (8.3-10.6); CARBON DIOXIDE LEVEL 27 MMOL/L (20-31); CHLORIDE LEVEL 104 MMOL/L (98-107); CREATININE FOR GFR 0.83 MG/DL (0.55-1.30); GLOMERULAR FILTRATION RATE > 60.0 (>39); GLUCOSE, FASTING 105 MG/DL (74-106); POTASSIUM SERUM 4.5 MMOL/L (3.5-5.1); SODIUM LEVEL 138 MMOL/L (136-145); TOTAL PROTEIN 6.9 G/DL (5.7-8.2)
[2024-07-13] MEDS: ONDANSETRON 4MG 2ML VIAL IV ONE (18:56)
[2024-07-13] MEDS: MORPHINE 4 MG/ML 1ML VIAL IV ONE (18:57)
[2024-07-13 19:15] LABS: KETONE, URINE AUTO RFX TRACE mg/dL (NEGATIVE); LEUKOCYTE ESTERASE UR AUTO RFX NEGATIVE (NEGATIVE); MUCUS, URINE RFX SMALL (NEGATIVE); NITRITE, URINE AUTO RFX NEGATIVE (NEGATIVE); RBC, URINE AUTO RFX 1 /HPF (0-3); SQUAM EPITHELIAL CELL UR AURFX 1 /HPF (0-6); WBC, URINE AUTO RFX 0 /HPF (0-3)
[2024-07-13] MEDS ORDERED: ISOVUE-370 76% 100ML VIAL As Ordered ONE (19:15)
[2024-07-13] MEDS: ACETAMINOPHEN *IV* 1,000 MG in IV 1 EA IV ONE (21:20)
[2024-07-13 22:22] VITALS: BP 144/65; TEMP 97.7; O2SAT 97
== END 2024-07-13 22:58 | disposition home or self-care (01) ==
LOC: M ED 16:37 → CANBEDREQ 21:29 → M ED 22:58
DX: R10.32 Left lower quadrant pain (principal); K57.30 Diverticulosis of large intestine without perforation or abscess without bleeding; K76.0 Fatty (change of) liver, not elsewhere classified; I10 Essential (primary) hypertension; E78.5 Hyperlipidemia, unspecified; J44.9 Chronic obstructive pulmonary disease, unspecified; F17.200 Nicotine dependence, unspecified, uncomplicated
CPT/HCPCS: 74177; 80048; 80076; 81001; 83690; 85025; 96365; 96375; 99284; J0131; J2405; Q9967

== ENCOUNTER 2024-09-27 15:38 | Emergency (ER) | payer MEDICARE ==
[~2024-09-27] VITALS: Ht 154.9 cm; Wt 71.2 kg
[2024-09-27 18:37] VITALS: BP 165/71; TEMP 98.3; O2SAT 98
== END 2024-09-27 21:12 | disposition left against medical advice (07) ==
LOC: M ED 15:38
DX: Z53.21 Procedure and treatment not carried out due to patient leaving prior to being seen by health care provider (principal)

== ENCOUNTER → 2025-05-16 | Outpatient (CLI) | payer MEDICARE ==
[~2025-05-16] MED LIST changes: +LIDO1ADH93 TD; -LIDO5DIS41 TD
== END ==
LOC: M RAD 09:43
PROVIDERS: ATTEND Internal Medicine Pulmonary Disease
DX: Z87.891 Personal history of nicotine dependence (principal)